=== PATIENT | female | born 1970 | race African-American/Black ===

== ENCOUNTER 2022-12-04 12:06 | Emergency (ER) | payer MEDICAID, SELFPAY ==
--- NOTE | ~2022-12-04 | XR_ITS ---
EXAMINATION: XR LUMBOSACRAL SPINE CLINICAL INFORMATION: Pain COMPARISON: 10/28/2018 TECHNIQUE: Three views of the lumbosacral spine. FINDINGS: There are five segmented, nonrib-bearing vertebra of the lumbar spine. The vertebral bodies have normal height and alignment. Although there is relative straightening of the lordotic curvature of the lumbar spine, this finding is similar in appearance compared to 10/28/2018 The disc spaces are maintained. No pars interarticularis defect or vertebral compression fracture. The anterior and posterior elements are intact. No lytic or osteoblastic lesion. Sacrum and sacroiliac joints are normal. Intrauterine contraceptive device is observed within the pelvis. Also, there are multiple metallic tacks from mesh placement at the left lower abdominal wall/inguinal region. XR/XR lumbar spine 2-3V IMPRESSION: No evidence of degenerative disc disease, fracture or malalignment. No acute findings in the lumbar spine compared to 10/28/2018.
[2022-12-04 12:31] VITALS: BP 139/88; PULSE 87; RESP 16; TEMP 36.8; O2SAT 99; BMI 25.8
--- NOTE | 2022-12-04 12:37 | ED_ITS ---
HPI - General Adult General Chief complaint: Back Pain/Injury Stated complaint: Lower back pain Time Seen by Provider: 12/04/22 12:36 Source: patient and RN notes reviewed Mode of arrival: ambulatory Limitations: no limitations History of Present Illness HPI narrative: 52-year-old female presents for evaluation of lower back pain. She reports that her symptoms started 3 weeks ago. She states that happen when she woke up, she denies any specific injury. She has spoken to her primary doctor on video call and was prescribed ?ibuprofen and muscle relaxers but it is not helping. ? She has not had any imaging. Next the pain now radiates into her right leg and she describes as electricity Denies any weakness, no bladder or bowel incontinence. Related Data Previous Rx's Medication Instructions Recorded dexamethasone 4 mg tablet 4 mg PO BID #6 tabs 12/04/22 tramadol 50 mg tablet 50 mg PO TID PRN pain #10 tabs 12/04/22 Allergies Allergy/AdvReac Type Severity Reaction Status Date / Time Penicillins [PENICILLINS] Allergy Unknown HIVES Verified 12/04/22 12:35 SEASONAL ALLERGIES Allergy Unknown UNK Uncoded 12/04/22 12:35 Review of Systems Constitutional: Constitutional: Reports as per HPI, Denies chills, Denies fatigue, Denies fever(s) and Denies headache(s) ENT: Denies headache(s) Cardiovascular: Cardiovascular: Denies chest pain and Denies dyspnea Respiratory: Respiratory: Denies cough and Denies dyspnea Gastrointestinal: Gastrointestinal: Denies abdominal pain, Denies constipation and Denies vomiting Genitourinary: Genitourinary: Denies dysuria Musculoskeletal: Musculoskeletal: Reports back pain, Denies muscle weakness, Reports radiating pain into limb and Reports tingling Neurologic: Denies headache(s), Denies focal weakness and Reports tingling Endocrine: Endocrine: Denies fatigue PMFSH Social History Social History Advance Directives: No Advance Directives Information Provided: Yes Physical Exam ED Vital Signs: Vital Signs - 24 hr 12/04/22 12:31 Temperature 98.3 F Pulse Rate 87 Respiratory Rate 16 Blood Pressure 139/88 Pulse Oximetry 99 Oxygen Delivery Method Room Air BMI result Body Mass Index 25.8 Const General: healthy appearing, comfortable, no acute distress, alert and awake Nutritional Appearance: well nourished Orientation/consciousness: patient oriented x3 HENMT Head: Yes normocephalic and Yes atraumatic Throat: Yes posterior oropharynx normal Neck Neck: Yes full ROM Resp Effort & Inspection: normal respiratory effort, able to speak in complete sentences, no audible wheezes and not labored GI Inspection: No distended Palpation (GI): Soft to palpation, not firm, nontender, no guarding and not rigid Auscultation: normoactive bowel sounds Back/Spine/Pelvis Other: Patient has positive right lumbar paraspinous muscle tenderness. No vertebral tenderness. Straight leg raise positive on the right. Skin General skin exam: no rashes or lesions noted and elasticity normal Neuro General: patient oriented x3 and deep tendon reflexes 2+ bilaterally Cranial nerves: Yes Bilaterally intact EOM present Cognition (Neuro): normal cognition Motor exam (neuro): 5/5 motor strength present throughout Extrem Other: Moving all extremities well without any obvious deformities Course Reevaluation(s) Reevaluation #1: Nurse reports the patient's pain has resolved after treatment. X-ray is negative for acute findings. Patient was discharged with Decadron for 3 days and tramadol for breakthrough pain Time: 14:06 Medications Administered Discontinued Medications Generic Name Dose Route Start Last Admin Trade Name Freq PRN Reason Stop Dose Admin Dexamethasone 4 mg 12/04/22 12:34 12/04/22 12:52 Dexamethasone 4 Mg Tablet PO 12/04/22 12:35 4 mg ONCE ONE Administration Ketorolac Tromethamine 30 mg 12/04/22 12:34 12/04/22 12:53 Ketorolac Tromethamine 30 Mg/Ml Vial IM 12/04/22 12:35 30 mg ONCE ONE Administration Medical Decision Making Medical Decision Making [facility] Narrative: 52-year-old female presents for evaluation of right lower back pain that radiates down the right leg. Consistent with sciatica, straight leg raise positive. No warning signs for cauda equina syndrome. We will get an x-ray of the lumbar spine as this has been going on for 2-3 weeks now without any imaging done. Patient medicated with Toradol and Decadron Differential Diagnosis Radiculopathy Sciatica Disc herniation Back pain Discharge Plan Discharge Clinical Impression: Sciatica Patient Disposition: Home, Self-Care Instructions: Sciatica (ED) Additional Instructions: Your x-ray showed mild degenerative changes of your spine but no fractures or malalignment Take Decadron twice daily for the next 3 days, your 1st dose was given in the emergency room Take tramadol for breakthrough pain. This may make you sleepy, did not drink alcohol or drive after taking it Prescriptions: New dexamethasone 4 mg tablet 4 mg PO BID Qty: 6 0RF tramadol 50 mg tablet 50 mg PO TID PRN (Reason: pain) Qty: 10 0RF
[2022-12-04] MEDS: dexAMETHasone 4 MG TABLET PO (12:52)
[2022-12-04] MEDS: Ketorolac Tromethamine 30 MG/ML VIAL IM (12:53)
== END 2022-12-04 14:15 | disposition home or self-care (01) ==
PROVIDERS: Emergency Provider Student in an Organized Health Care Education/Training Program; PCP Nurse Practitioner Family
DX: M54.41 Lumbago with sciatica, right side (principal)
CPT/HCPCS: 72100; 96372; 99283; 99284; J1885; J8540